=== PATIENT | male | born 1995 | race Caucasian/White ===

== ENCOUNTER 2016-07-24 14:27 | Emergency (ER) | payer OTHER | END 2016-07-24 15:56 | disposition home or self-care (01) | LOC: ER 14:27 | DX: S80.12XA Contusion of left lower leg, initial encounter (principal); S09.90XA Unspecified injury of head, initial encounter; V49.00XA Driver injured in collision with unspecified motor vehicles in nontraffic accident, initial encounter | CPT/HCPCS: 73590-LT; 99284 ==